=== PATIENT | female | born 1970 | race African-American/Black ===

== ENCOUNTER 2019-07-19 11:22 | Emergency (ER) | payer OTHER ==
[~2019-07-19] VITALS: Ht 170.2 cm; Wt 136.4 kg
[~2019-07-19 11:22] MED LIST: ASPI-556 PO; BECL8.7A5 IH; CALC-916 PO; CARV6 PO; ERGO500013 PO; FERR-89 PO; FURO40 PO; HYDR-4069 PO; LISI-662 PO; METF-960 PO; SPIR50 PO
[2019-07-19] MEDS ORDERED: CARV3 PO (11:37)
[2019-07-19] MEDS ORDERED: OMEP20 PO (11:38)
[2019-07-19] MEDS ORDERED: GABA-531 PO (11:38)
[2019-07-19] MEDS ORDERED: ISOS10TA16 PO (11:38)
[2019-07-19] MEDS ORDERED: SACU1TAB PO (11:38)
[2019-07-19] MEDS ORDERED: APIX5TAB PO (11:38)
[2019-07-19 11:42] LABS: GLUCOSE,POINT OF CARE 122 MG/DL (70-110)
[2019-07-19 13:43] LABS: BASOPHILS % (AUTO) 1.2 % (0.0-2.0); EOSINOPHILS % (AUTO) 3.4 % (1.0-6.0); HEMATOCRIT 38.2 % (36-46); HEMOGLOBIN 12.4 g/dL (12.0-16.0); LYMPHOCYTES # (AUTO) 2.8 K/uL (1.0-4.8); LYMPHOCYTES % (AUTO) 39.2 % (22.0-44.0); MEAN CORPUSCULAR HEMOGLOBIN 26.5 pg (26.0-34.0); MEAN CORPUSCULAR HGB CONC 32.6 G/dL (31.0-37.0); MEAN CORPUSCULAR VOLUME 81 fL (80-100); MONOCYTES # (AUTO) 0.4 K/uL (0.1-1.0); MONOCYTES % (AUTO) 5.3 % (2.0-9.0); NEUTROPHILS # (AUTO) 3.6 K/uL (1.8-7.7); NEUTROPHILS % (AUTO) 50.9 % (40.0-70.0); PLATELET COUNT (AUTO) 348 K/uL (150-450); RED CELL DISTRIBUTION WIDTH 14.7 % (11.5-14.5)
[2019-07-19 13:49] LABS: ANION GAP 6 mmol/L (8-16); CALCIUM, TOTAL 8.8 mg/dL (8.8-10.5); CARBON DIOXIDE 31 mmol/L (22-29); CHLORIDE 105 mmol/L (98-107); CREATININE 0.91 mg/dL (0.60-1.30); GLOMERULAR FILTR. RATE CALC > 60 mL/min (>60); GLUCOSE,RANDOM 103 mg/dL (70-110); SODIUM SERUM 142 mmol/L (136-145); UREA NITROGEN, BLOOD 15 mg/dL (7-18)
[2019-07-19 13:57] LABS: INFLUENZA TYPE A NEGATIVE FOR TYPE A (NEGATIVE); INFLUENZA TYPE B NEGATIVE FOR TYPE B (NEGATIVE)
[2019-07-19 14:00] LABS: ALANINE AMINOTRANSFERASE 13 U/L (12-78); ALBUMIN 3.3 g/dL (3.4-5.0); ALKALINE PHOSPHATASE 77 U/L (46-116); ASPARTATE AMINOTRANSFERASE 8 U/L (15-37); BILIRUBIN,TOTAL 0.4 mg/dL (0.1-1.0); HCG,QUANTITATIVE < 1 mIU/mL (0-6); TOTAL PROTEIN, SERUM 7.3 g/dL (6.4-8.2)
[2019-07-19 14:14] VITALS: BP 120/73
[2019-08-11] MEDS ORDERED: ERGO500014 PO (14:53)
[2019-08-14] MEDS ORDERED: CEPH250 PO (12:17)
[2019-08-14] MEDS ORDERED: CITA-106 PO (12:17)
== END 2019-07-19 14:18 | disposition home or self-care (01) ==
LOC: EMS 11:24
DX: J18.9 Pneumonia, unspecified organism (principal); F17.210 Nicotine dependence, cigarettes, uncomplicated; I11.0 Hypertensive heart disease with heart failure; I50.9 Heart failure, unspecified; E11.9 Type 2 diabetes mellitus without complications; Z95.0 Presence of cardiac pacemaker; Z86.73 Personal history of transient ischemic attack (TIA), and cerebral infarction without residual deficits; Z88.1 Allergy status to other antibiotic agents; Z79.84 Long term (current) use of oral hypoglycemic drugs; Z79.899 Other long term (current) drug therapy
CPT/HCPCS: 87804; 93005; 99406

== ENCOUNTER 2019-07-21 11:09 | Inpatient (IN) | payer OTHER ==
[~2019-07-21] VITALS: Ht 170.2 cm; Wt 134.6 kg
[2019-07-21] VITALS (9 sets, daily range): BP systolic 118–136; BP diastolic 54–78
[~2019-07-21 11:09] MED LIST changes: +APIX5TAB PO; -ASPI-556 PO; -BECL8.7A5 IH; -CALC-916 PO; +CARV3 PO; -CARV6 PO; +GABA-531 PO; -HYDR-4069 PO; +ISOS10TA16 PO; -LISI-662 PO; +OMEP20 PO; +SACU1TAB PO; -SPIR50 PO
[2019-07-21] MEDS ORDERED: PROPOFOL 1% 20 ML VIAL IVP ONE (12:00)
[2019-07-21] MEDS ORDERED: SODIUM CHLORIDE 0.9% 1,000 ML IV ONE (12:00)
[2019-07-21] MEDS ORDERED: MIDAZOLAM HCL 2 MG/2 ML VIAL IVP ONE (12:00)
[2019-07-21] MEDS ORDERED: FentaNYL CITRATE-PF 100 MCG/2 ML VIAL IVP ONE (12:00)
[2019-07-21] MEDS ORDERED: LIDOCAINE/PF 2% 5 ML VIAL INJ ONE (12:00)
[2019-07-21] MEDS ORDERED: SODIUM CHLORIDE 0.9% 1,000 ML ONE (13:12)
[2019-07-21 13:14] LABS: INR 1.1 (0.9-1.1); PROTHROMBIN TIME 10.8 SEC (9.4-11.6)
[2019-07-21 13:38] LABS: GLUCOMETER DEV NAME(LOC) SDS.; GLUCOSE,POINT OF CARE 76 MG/DL (70-110)
[2019-07-21] MEDS ORDERED: SODIUM BICARBONATE 50 MEQ/50 ML VIAL ONE (13:42)
[2019-07-21] MEDS ORDERED: LIDOCAINE/PF 1% 30 ML VIAL ONE ×2 (13:42→15:21)
[2019-07-21] MEDS ORDERED: ERGO500054 PO (15:13)
[2019-07-21] MEDS ORDERED: SIMV10TA97 PO (15:13)
[2019-07-21] MEDS ORDERED: BUPIVACAINE LIPOSOME/PF 1.3%-13.3MG/ML SUSPENSION 10 ML VIAL INJ ONE (15:15)
[2019-07-21] MEDS ORDERED: LIDOCAINE 1% 30 ML/SOD BICARB 8.4% 4 ML SQ ONE (15:15)
[2019-07-21] MEDS ORDERED: ACETAMINOPHEN 325 MG TABLET PO PRN (16:30)
[2019-07-21] MEDS ORDERED: INSULIN LISPRO 100 UNITS/ML SQ PRN (16:30)
[2019-07-21] MEDS ORDERED: DEXTROSE 50%-WATER 25 GM/50 ML SYRINGE IVP PRN (16:30)
[2019-07-21 16:41] LABS: B-TYPE NATRIURETIC PEPTIDE 81 pg/mL (0-100)
[2019-07-21 16:42] LABS: ANION GAP 7 mmol/L (8-16); CALCIUM, TOTAL 7.9 mg/dL (8.8-10.5); CARBON DIOXIDE 29 mmol/L (22-29); CHLORIDE 107 mmol/L (98-107); CREATININE 0.59 mg/dL (0.60-1.30); GLOMERULAR FILTR. RATE CALC > 60 mL/min (>60); GLUCOSE,RANDOM 89 mg/dL (70-110); POTASSIUM 3.5 mmol/L (3.5-5.1); SODIUM SERUM 143 mmol/L (136-145); UREA NITROGEN, BLOOD 10 mg/dL (7-18)
[2019-07-21] MEDS: FERROUS SULFATE 325 MG EC TABLET PO SCH (17:30)
[2019-07-21] MEDS ORDERED: HYDROCODONE/ACETAMINOPHEN 5-325 MG TABLET ONE (17:47)
[2019-07-21] MEDS ORDERED: SODIUM CHLORIDE 0.9% 100 ML ONE (20:51)
[2019-07-21] MEDS: CeFAZolin 1 GM/DEXTROSE 50 ML IV SCH (21:06)
[2019-07-21] MEDS: SACUBITRIL/VALSARTAN 24-26 MG TABLET PO SCH (21:06)
[2019-07-21] MEDS: GABAPENTIN 300 MG CAPSULE PO SCH (21:06)
[2019-07-21 22:55] LABS: GLUCOMETER DEV NAME(LOC) 5N.1; GLUCOSE,POINT OF CARE 71 MG/DL (70-110)
[2019-07-21 22:56] LABS: GLUCOMETER DEV NAME(LOC) 5N.1; GLUCOSE,POINT OF CARE 114 MG/DL (70-110)
[2019-07-22] MEDS: CeFAZolin 1 GM/DEXTROSE 50 ML IV SCH ×3 (03:58→15:42)
[2019-07-22 04:23] VITALS: BP 149/79
[2019-07-22 07:21] VITALS: BP 129/81
[2019-07-22] MEDS: HYDROCODONE/ACETAMINOPHEN 5-325 MG TABLET PO PRN ×2 (07:52→13:31)
[2019-07-22] MEDS: GABAPENTIN 300 MG CAPSULE PO SCH ×2 (07:55→15:45)
[2019-07-22] MEDS: SACUBITRIL/VALSARTAN 24-26 MG TABLET PO SCH (07:56)
[2019-07-22] MEDS: FERROUS SULFATE 325 MG EC TABLET PO SCH (07:58)
[2019-07-22 08:41] LABS: GLUCOMETER DEV NAME(LOC) 5S.2A; GLUCOSE,POINT OF CARE 108 MG/DL (70-110)
[2019-07-22] MEDS ORDERED: OMEPRAZOLE 20 MG CAPSULE PO SCH (09:00)
[2019-07-22] MEDS ORDERED: CARVEDILOL 3.125 MG TABLET PO SCH (09:00)
[2019-07-22] MEDS ORDERED: ISOSORBIDE DINITRATE 10 MG TABLET PO SCH (09:00)
[2019-07-22] MEDS ORDERED: FUROSEMIDE 40 MG TABLET PO SCH (09:00)
[2019-07-22 15:43] VITALS: BP 126/69
[2019-07-22] MEDS ORDERED: CEPH250 PO (15:48)
[2019-07-22 21:32] LABS: GLUCOMETER DEV NAME(LOC) 5S.2A; GLUCOSE,POINT OF CARE 119 MG/DL (70-110)
== END 2019-07-22 19:00 | disposition home or self-care (01) | DRG 245 ==
LOC: SDS 11:09 → 5S 11:10
PROVIDERS: ADMIT Internal Medicine Clinical Cardiac Electrophysiology; ATTEND Internal Medicine Clinical Cardiac Electrophysiology
PROC: 0JPT0PZ Removal of Cardiac Rhythm Related Device from Trunk Subcutaneous Tissue and Fascia, Open Approach (ICD-10-PCS; principal; 2019-07-21)
PROC: 0JH608Z Insertion of Defibrillator Generator into Chest Subcutaneous Tissue and Fascia, Open Approach (ICD-10-PCS; 2019-07-21)
DX: T82.118A Breakdown (mechanical) of other cardiac electronic device, initial encounter (principal); I50.22 Chronic systolic (congestive) heart failure; I11.0 Hypertensive heart disease with heart failure; I48.0 Paroxysmal atrial fibrillation; Y83.8 Other surgical procedures as the cause of abnormal reaction of the patient, or of later complication, without mention of misadventure at the time of the procedure; Z95.810 Presence of automatic (implantable) cardiac defibrillator; Z79.01 Long term (current) use of anticoagulants; Z86.73 Personal history of transient ischemic attack (TIA), and cerebral infarction without residual deficits; Y92.89 Other specified places as the place of occurrence of the external cause
CPT/HCPCS: 33240; 87081; 88300; 93005; J0690; J2250; J2704; J3010; J3490; J7030; J7050